=== PATIENT | female | born 1980 | race Caucasian/White ===

== ENCOUNTER 2018-05-12 19:37 | Emergency (ER) | payer MEDICAID ==
[~2018-05-12] VITALS: Ht 165.1 cm; Wt 66.4 kg
[2018-05-12 19:46] VITALS: BP 136/74
[2018-05-12] MEDS ORDERED: ACET1TAB12 PO (20:31)
[2018-05-12] MEDS ORDERED: CLIN300C85 PO (20:31)
== END 2018-05-12 20:34 | disposition home or self-care (01) ==
LOC: ER 19:39
DX: K04.7 Periapical abscess without sinus (principal); R20.2 Paresthesia of skin; F17.200 Nicotine dependence, unspecified, uncomplicated; Z88.6 Allergy status to analgesic agent
CPT/HCPCS: 99283